=== PATIENT | female | born 1990 | race Caucasian/White ===

== ENCOUNTER 2019-10-04 15:52 | Emergency (ER) | payer BC ==
[~2019-10-04] VITALS: Ht 165.1 cm; Wt 68.0 kg
[2019-10-04 16:10] VITALS: BP_SYST 116
--- NOTE | 2019-10-04 16:14 | NUR ---
Patient triaged and placed on ems gurney. VSS and patient appears in no acute distress at this time. Accompanied by ems, awaiting available bed, and MD notified of need for MSE.
--- NOTE | 2019-10-04 16:18 | NUR ---
Patient to ER bed HALLWAY BED 1 to gown for evaluation. Side rails up.
--- NOTE | 2019-10-04 16:20 | NUR ---
ER Dr. Fields at bedside examining patient.
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
[2019-10-04 16:52] VITALS: BP_SYST 114
--- NOTE | 2019-10-04 16:52 | NUR ---
Patient given written and verbal discharge instructions and verbalizes understanding. ER MD discussed with patient the results and treatment provided. Patient in stable condition. ID arm band removed. No Rx given. Patient educated on pain management and to follow up with PMD. Pain Scale 6/10 tolerable by patient. Opportunity for questions provided and answered. Medication side effect fact sheet provided.
== END 2019-10-04 16:52 | disposition home or self-care (01) ==
LOC: SED 15:52
DX: S80.02XA Contusion of left knee, initial encounter (principal); V03.90XA Pedestrian on foot injured in collision with car, pick-up truck or van, unspecified whether traffic or nontraffic accident, initial encounter; Y93.01 Activity, walking, marching and hiking; Y92.89 Other specified places as the place of occurrence of the external cause; Y99.8 Other external cause status
CPT/HCPCS: 73564; 99283